=== PATIENT | male | born 1965 | race Two or more races ===

== ENCOUNTER 2025-01-15 00:27 | Inpatient (IN) | payer MEDICAID, MEDICARE ==
[~2025-01-15] VITALS: Ht 167.6 cm; Wt 42.6 kg
[2025-01-15 03:08] LABS: PLATELET COUNT (AUTO) 195 K/uL (150-450); RED BLOOD CELL COUNT(AUTO) 4.25 MIL/uL (4.5-6.0); RED CELL DISTRIBUTION WIDTH 13.4 % (11.5-15.0); WHITE BLOOD COUNT (AUTO) 5.0 K/uL (4.3-11.0)
[2025-01-15 03:15] LABS: CALCIUM, SERUM 8.8 mg/dL (8.5-10.1); CREATININE 0.6 mg/dL (0.6-1.3); SODIUM SERUM 140.0 mmol/L (136-145); UREA NITROGEN, BLOOD 11.0 mg/dL (7-18)
[2025-01-15 03:21] LABS: INR 1.02 (0.91-1.10)
[2025-01-15 03:32] LABS: APPEARANCE,URINE CLOUDY (CLEAR); BLOOD, URINE 3+ Ery/uL (NEGATIVE); LEUKOCYTE ESTERASE ,URINE 2+ (NEGATIVE); NITRITE, URINE NEGATIVE (NEGATIVE); UGLUCOSE NEGATIVE (NEGATIVE)
[2025-01-15 03:49] LABS: ADD URINE CULTURE YES; SQUAMOUS EPITHELIAL CELL,UR None Seen /HPF (None Seen)
[2025-01-15] MEDS ORDERED: ONDANSETRON HCL/PF 4 MG/2 ML VIAL IVP PRN (04:00)
[2025-01-15] MEDS ORDERED: MAGNESIUM HYDROXIDE 30 ML UDC PO PRN (04:00)
[2025-01-15] MEDS ORDERED: Z GUARD REMEDY 4 OZ OINT TP PRN (04:00)
[2025-01-15] MEDS ORDERED: ZOLPIDEM TARTRATE 5 MG TABLET PO PRN (04:00)
[2025-01-15] MEDS: AZITHROMYCIN 500 MG in IV D5W 250 ML IV ONE (04:00)
[2025-01-15] MEDS ORDERED: MAG HYDROX/AL HYDROX/SIMETH 30 ML UDC PO PRN (04:00)
[2025-01-15] MEDS ORDERED: ACETAMINOPHEN 325 MG TABLET PO PRN (04:00)
[2025-01-15] MEDS ORDERED: CEFTRIAXONE 1GM BAG (ER ONLY) 50 ML IV ONE (04:42)
[2025-01-15] MEDS ORDERED: AZITHROMYCIN 500 MG VIAL ONE (04:42)
[2025-01-15] MEDS: CEFTRIAXONE 1GM BAG (ER ONLY) 1 GM/50 ML PIGGYBACK IV ONE (04:43)
[2025-01-15 08:00] VITALS: BP 108/81; TEMP 97.9; O2SAT 98
[2025-01-15] MEDS: IV NS 0.9% 1,000 ML IV PRN (08:48)
[2025-01-15 16:00] VITALS: BP 98/65; TEMP 98.1; O2SAT 97
[2025-01-15 20:00] VITALS: BP 135/78; TEMP 98.1; O2SAT 97
[2025-01-16] MEDS: AZITHROMYCIN 500 MG in IV D5W 250 ML IV SCH (04:06)
[2025-01-16] MEDS: CEFTRIAXONE 1 G in IV D5W 50 ML IV SCH (05:14)
[2025-01-16 06:40] LABS: PLATELET COUNT (AUTO) 152 K/uL (150-450); RED BLOOD CELL COUNT(AUTO) 3.91 MIL/uL (4.5-6.0); RED CELL DISTRIBUTION WIDTH 14.2 % (11.5-15.0); WHITE BLOOD COUNT (AUTO) 3.7 K/uL (4.3-11.0)
[2025-01-16 07:04] LABS: CALCIUM, SERUM 8.6 mg/dL (8.5-10.1); CREATININE 0.4 mg/dL (0.6-1.3); PHOSPHORUS 3.0 mg/dL (2.5-4.9); SODIUM SERUM 137.0 mmol/L (136-145); UREA NITROGEN, BLOOD 13.0 mg/dL (7-18)
[2025-01-16 08:29] VITALS: BP 118/78; TEMP 97.7; O2SAT 95
[2025-01-16] MEDS ORDERED: LEVETIRACETAM (250 MG) 250 MG TABLET PO SCH (11:30)
[2025-01-16] MEDS: LEVETIRACETAM SOL (5 ML) 100 MG/ML UDC PO SCH (13:04)
[2025-01-16] MEDS: BACLOFEN (10 MG) 10 MG TABLET PO SCH (13:04)
[2025-01-16 15:00] VITALS: BP 138/76; TEMP 97.5; O2SAT 97
[2025-01-16 20:00] VITALS: BP 116/76; TEMP 98.2; O2SAT 96
[2025-01-17 08:00] VITALS: BP 117/82; TEMP 98.4; O2SAT 98
[2025-01-17 16:00] VITALS: BP 103/75; TEMP 98.2; O2SAT 100
[2025-01-17 20:00] VITALS: BP 107/77; TEMP 98.1; O2SAT 96
[2025-01-18 08:00] VITALS: BP 115/88; TEMP 98.4; O2SAT 97
[2025-01-18 16:00] VITALS: BP 121/85; TEMP 98.6; O2SAT 98
[2025-01-18 20:00] VITALS: BP 117/66; TEMP 98.6; O2SAT 96
[2025-01-18] MEDS: LEVETIRACETAM (250 MG) 250 MG TABLET PO SCH (20:22)
[2025-01-19 08:00] VITALS: BP 114/78; TEMP 98.4; O2SAT 96
[2025-01-19 08:59] VITALS: BP 114/78; TEMP 98.4; O2SAT 96
[2025-01-19] MEDS ORDERED: BACL10TA PO (12:43)
[2025-01-19] MEDS ORDERED: LEVE750T10 PO (12:43)
== END 2025-01-19 17:25 | DRG 641 ==
LOC: EDBD 00:39 → ER 00:39 → MED 07:22
PROVIDERS: ADMIT Nurse Practitioner Family; ATTEND Nurse Practitioner Family
DX: R62.7 Adult failure to thrive (principal); D68.59 Other primary thrombophilia; Z66 Do not resuscitate; Z87.820 Personal history of traumatic brain injury; Z74.01 Bed confinement status; B96.89 Other specified bacterial agents as the cause of diseases classified elsewhere
CPT/HCPCS: 36415; 71045-TC; 71046; 80048-TC; 81001; 83605-TC; 83735-TC; 84100-TC; 85025-TC; 85730-TC; 87040-TC; 87081-TC; 87086-TC; A4223; G0378; J0456; J0696; J1953; J7030; J7060